=== PATIENT | male | born 1930 | race Caucasian/White ===

== ENCOUNTER → 2021-05-06 | Outpatient (CLI) | payer MEDICARE, BC ==
[2021-05-06 10:40] LABS: HEMOGLOBIN 8.3 gm/dl (14.0-17.5); RED BLOOD COUNT 2.62 M/UL (4.20-5.50)
== END ==
LOC: LAB 09:32
PROVIDERS: Internal Medicine Nephrology
DX: N18.9 Chronic kidney disease, unspecified (principal); D63.1 Anemia in chronic kidney disease
CPT/HCPCS: 36415; 82728; 83540; 83550; 85027

== ENCOUNTER → 2021-05-14 | Outpatient (CLI) | payer MEDICARE, BC ==
[~2021-05-14] VITALS: Ht 170.2 cm; Wt 48.1 kg
[2021-05-14 13:52] LABS: HEMOGLOBIN 8.4 gm/dl (14.0-17.5); RED BLOOD COUNT 2.68 M/UL (4.20-5.50); WHITE BLOOD COUNT 9.2 K/UL (4.5-11.0)
== END ==
LOC: OPSV 12:59
PROVIDERS: Internal Medicine Nephrology
DX: N18.5 Chronic kidney disease, stage 5 (principal); D63.1 Anemia in chronic kidney disease
CPT/HCPCS: 36415; 82728; 83540; 83550; 85027; 96372; Q5105

== ENCOUNTER → 2021-05-28 | Outpatient (CLI) | payer MEDICARE, BC ==
[2021-05-28 14:06] LABS: HEMOGLOBIN 9.7 gm/dl (14.0-17.5); RED BLOOD COUNT 3.03 M/UL (4.20-5.50); WHITE BLOOD COUNT 7.9 K/UL (4.5-11.0)
== END ==
LOC: OPSV 13:00
PROVIDERS: Internal Medicine Nephrology
DX: N18.5 Chronic kidney disease, stage 5 (principal); D63.1 Anemia in chronic kidney disease
CPT/HCPCS: 36415; 85027; 96372; Q5106

== ENCOUNTER → 2021-06-11 | Outpatient (CLI) | payer MEDICARE, BC ==
[~2021-06-11] VITALS: Ht 170.2 cm; Wt 48.1 kg
[2021-06-11 12:31] LABS: HEMOGLOBIN 9.9 gm/dl (14.0-17.5); RED BLOOD COUNT 3.12 M/UL (4.20-5.50); WHITE BLOOD COUNT 8.1 K/UL (4.5-11.0)
== END ==
LOC: OPSV 12:00
PROVIDERS: Internal Medicine Nephrology
DX: N18.5 Chronic kidney disease, stage 5 (principal)
CPT/HCPCS: 36415; 80069; 82728; 83540; 83550; 85027; 96372; Q5105

== ENCOUNTER → 2021-06-29 | Outpatient (CLI) | payer MEDICARE, BC ==
[~2021-06-29] VITALS: Ht 170.2 cm; Wt 48.1 kg
[2021-06-29 14:09] LABS: HEMOGLOBIN 9.8 gm/dl (14.0-17.5); RED BLOOD COUNT 3.2 M/UL (4.20-5.50); WHITE BLOOD COUNT 7.7 K/UL (4.5-11.0)
== END ==
LOC: OPSV 12:00
PROVIDERS: Internal Medicine Nephrology
DX: N25.81 Secondary hyperparathyroidism of renal origin (principal); N18.5 Chronic kidney disease, stage 5; D63.1 Anemia in chronic kidney disease
CPT/HCPCS: 36415; 83970; 85027; 96372; Q5106

== ENCOUNTER → 2021-07-15 | Outpatient (CLI) | payer MEDICARE, BC ==
[2021-07-15 13:13] LABS: RED BLOOD COUNT 3.26 M/UL (4.20-5.50); WHITE BLOOD COUNT 9.3 K/UL (4.5-11.0)
== END ==
LOC: OPSV 12:00
PROVIDERS: Internal Medicine Nephrology
DX: N18.5 Chronic kidney disease, stage 5 (principal); D63.1 Anemia in chronic kidney disease
CPT/HCPCS: 36415; 80069; 82728; 83540; 83550; 85027

== ENCOUNTER → 2021-07-22 | Outpatient (CLI) | payer MEDICARE, BC | LOC: LAB 09:40 | PROVIDERS: Internal Medicine Nephrology | DX: E87.5 Hyperkalemia (principal) | CPT/HCPCS: 36415; 80048 ==

== ENCOUNTER → 2021-08-12 | Outpatient (CLI) | payer MEDICARE, BC ==
[~2021-08-12] MED LIST: CARTIA XT180 MG PO; CATAPRES 0.1MG0.1 MG PO; CLONIDINE HCL0.1 MG PO; FINASTERIDE5 MG PO; LASIX40 MG PO; MULTIVITAMIN1 EACH PO; MUPIROCIN22 GM TOP; PRAVASTATIN SOD20 MG PO; SODIUM BICARBO325 MG PO; TUMS200 MG PO
== END ==
LOC: OPSV 12:00
DX: N18.5 Chronic kidney disease, stage 5 (principal); D63.1 Anemia in chronic kidney disease
CPT/HCPCS: 96372; J0885

== ENCOUNTER → 2021-08-18 | Outpatient (CLI) | payer MEDICARE, BC ==
[2021-08-18 13:12] LABS: HEMOGLOBIN 11.1 gm/dl (14.0-17.5); RED BLOOD COUNT 3.6 M/UL (4.20-5.50); WHITE BLOOD COUNT 8.9 K/UL (4.5-11.0)
== END ==
LOC: OPSV 12:00
PROVIDERS: Internal Medicine Nephrology
DX: N18.5 Chronic kidney disease, stage 5 (principal); D63.1 Anemia in chronic kidney disease
CPT/HCPCS: 36415; 80069; 82728; 83540; 83550; 85027

== ENCOUNTER 2021-08-24 18:47 | Inpatient (IN) | payer MEDICARE, BC ==
[~2021-08-24] VITALS: Ht 170.2 cm; Wt 48.5 kg
[2021-08-24 20:34] LABS: HEMOGLOBIN 10.7 gm/dl (14.0-17.5); RED BLOOD COUNT 3.51 M/UL (4.20-5.50); WHITE BLOOD COUNT 7.7 K/UL (4.5-11.0)
[2021-08-24 20:57] LABS: BUN/CREATININE RATIO 10 (0-10)
--- NOTE | 2021-08-24 21:00 | NUR ---
UNABLE TO OBTAIN A LIST OF PT'S HOME MEDICATIONS FROM PT. PT CANNOT GIVE A LIST OF HOME MEDICATIONS AT THIS TIME. TRIED TO USE MEDICATION CLAIM HISTORY, HOWEVER ONLY 3 MEDICATIONS POPPED UP AND PT COULD NOT VERIFY THOSE WELL.
[2021-08-25 05:59] LABS: HEMOGLOBIN 9.4 gm/dl (14.0-17.5)
[2021-08-25 06:00] LABS: RED BLOOD COUNT 3.12 M/UL (4.20-5.50)
--- NOTE | 2021-08-25 09:48 | NUR ---
pt signed consent for tunneled dialysis catheter placement.
[2021-08-25] MEDS ORDERED: SODIUM BICARBO325 MG PO (10:33)
[2021-08-25] MEDS ORDERED: FINASTERIDE5 MG PO (10:33)
[2021-08-25] MEDS ORDERED: MULTIVITAMIN1 EACH PO (10:34)
[2021-08-25] MEDS ORDERED: TUMS200 MG PO (10:34)
[2021-08-25] MEDS ORDERED: PRAVASTATIN SOD20 MG PO (10:34)
[2021-08-25] MEDS ORDERED: CARTIA XT180 MG PO (10:34)
[2021-08-25] MEDS ORDERED: MUPIROCIN22 GM TOP (10:35)
[2021-08-25] MEDS ORDERED: LASIX40 MG PO (10:35)
[2021-08-25] MEDS ORDERED: CLONIDINE HCL0.1 MG PO (10:35)
[2021-08-26 04:57] LABS: HEMOGLOBIN 9.8 gm/dl (14.0-17.5); RED BLOOD COUNT 3.21 M/UL (4.20-5.50)
[2021-08-26 08:12] LABS: HBSAG SCREEN Negative (Negative); HEP A AB, IGM Negative (Negative); HEP B CORE AB, IGM Negative (Negative); HEP C VIRUS AB 0.1 (0.0-0.9)
--- NOTE | 2021-08-26 08:54 | NUR ---
off unit for dilysis placement.
--- NOTE | 2021-08-26 14:05 | NUR ---
PT RESTING QUIETLY AFTER RETURNING FROM LEFT SUBCLAVIAN DIALYSIS CATHETER DRESSING [facility]I.
[2021-08-27 03:27] LABS: HEMOGLOBIN 9.3 gm/dl (14.0-17.5); RED BLOOD COUNT 3.06 M/UL (4.20-5.50)
[2021-08-27 03:28] LABS: WHITE BLOOD COUNT 16.8 K/UL (4.5-11.0)
[2021-08-28 07:54] LABS: HEMOGLOBIN 9.6 gm/dl (14.0-17.5); RED BLOOD COUNT 3.15 M/UL (4.20-5.50); WHITE BLOOD COUNT 14.9 K/UL (4.5-11.0)
[2021-08-28] MEDS ORDERED: CATAPRES 0.1MG0.1 MG PO (09:38)
== END 2021-08-28 17:47 | disposition home or self-care (01) | DRG 673 ==
LOC: MED SURG 4 18:48
PROVIDERS: Internal Medicine; Internal Medicine Nephrology; Surgery; ADMIT Internal Medicine
PROC: 02HV33Z Insertion of Infusion Device into Superior Vena Cava, Percutaneous Approach (ICD-10-PCS; 2021-08-26)
PROC: 5A1D70Z Performance of Urinary Filtration, Intermittent, Less than 6 Hours Per Day (ICD-10-PCS; 2021-08-26)
PROC: 5A1D70Z Performance of Urinary Filtration, Intermittent, Less than 6 Hours Per Day (ICD-10-PCS; 2021-08-26)
PROC: 5A1D70Z Performance of Urinary Filtration, Intermittent, Less than 6 Hours Per Day (ICD-10-PCS; 2021-08-26)
PROC: 0JH63XZ Insertion of Tunneled Vascular Access Device into Chest Subcutaneous Tissue and Fascia, Percutaneous Approach (ICD-10-PCS; principal; 2021-08-26 08:15)
DX: I12.0 Hypertensive chronic kidney disease with stage 5 chronic kidney disease or end stage renal disease (principal); N18.6 End stage renal disease; E43 Unspecified severe protein-calorie malnutrition; E87.2 Acidosis; Z68.1 Body mass index [BMI] 19.9 or less, adult; N40.0 Benign prostatic hyperplasia without lower urinary tract symptoms; Z20.822 Contact with and (suspected) exposure to COVID-19; M51.36 Other intervertebral disc degeneration, lumbar region; E87.5 Hyperkalemia; E78.5 Hyperlipidemia, unspecified; D63.1 Anemia in chronic kidney disease; D50.9 Iron deficiency anemia, unspecified; Z99.2 Dependence on renal dialysis; Z90.5 Acquired absence of kidney; Z85.528 Personal history of other malignant neoplasm of kidney; Z85.89 Personal history of malignant neoplasm of other organs and systems; Z98.890 Other specified postprocedural states; L89.152 Pressure ulcer of sacral region, stage 2
CPT/HCPCS: 36415; 71045; 77001; 80048; 80053; 80061; 80074; 82550; 82553; 82962; 83036; 83540; 83550; 83605; 83735; 83880; 84100; 84484; 85025; 85027; 85610; 85652; 86140; 87040; 90935; 90937; 93005; A6212; C1750; C1769; J0360; J1100; J1642; J1644; J1756; J2001; J2370; J2405; J2704; J2997; J3010; J7030; J7040; J7120; Q5105; U0002

== ENCOUNTER 2021-09-23 16:26 | Inpatient (IN) | payer MEDICARE, BC ==
[~2021-09-23] VITALS: Ht 170.2 cm; Wt 47.8 kg
[2021-09-23 18:26] LABS: HEMOGLOBIN 10.6 gm/dl (14.0-17.5); RED BLOOD COUNT 3.58 M/UL (4.20-5.50)
[2021-09-23 18:50] LABS: WHITE BLOOD COUNT 42.3 K/UL (4.5-11.0)
[2021-09-24 04:17] LABS: HEMOGLOBIN 9.2 gm/dl (14.0-17.5)
[2021-09-24 04:20] LABS: RED BLOOD COUNT 3.12 M/UL (4.20-5.50); WHITE BLOOD COUNT 42.1 K/UL (4.5-11.0)
--- NOTE | 2021-09-24 04:22 | NUR ---
CRITICAL LACTIC OF 42.1, DR. INTERIANO NOTIFIED. NO NEW ORDERS
[2021-09-24 10:42] LABS: MONONUCLEAR CELLS 4 (75-100); POLYMORPHONUCLEAR % 96 (0-25); RBC (AUTOMATED) 2000 (0-100000); TOTAL PROTEIN, BODY FLUID 4.4 gm/dL; WBC (AUTOMATED) 13340 (0-500)
[2021-09-24 13:12] LABS: LDH, BODY FLUID 988 U/L
[2021-09-25 03:20] LABS: HEMOGLOBIN 8.6 gm/dl (14.0-17.5); RED BLOOD COUNT 2.85 M/UL (4.20-5.50)
[2021-09-25 03:30] LABS: WHITE BLOOD COUNT 32.4 K/UL (4.5-11.0)
[2021-09-26 06:39] LABS: HEMOGLOBIN 9.2 gm/dl (14.0-17.5)
[2021-09-26 06:49] LABS: RED BLOOD COUNT 3.16 M/UL (4.20-5.50); WHITE BLOOD COUNT 38.1 K/UL (4.5-11.0)
[2021-09-26 15:13] LABS: MONONUCLEAR CELLS 23.5 (75-100); POLYMORPHONUCLEAR % 76.5 (0-25); RBC (AUTOMATED) 8400 (0-100000); WBC (AUTOMATED) 19760 (0-500)
[2021-09-26 15:44] LABS: LDH, BODY FLUID 3713 U/L
[2021-09-27 04:48] LABS: HEMOGLOBIN 9.5 gm/dl (14.0-17.5); RED BLOOD COUNT 3.24 M/UL (4.20-5.50)
[2021-09-27 04:53] LABS: WHITE BLOOD COUNT 28.2 K/UL (4.5-11.0)
[2021-09-28 04:20] LABS: HEMOGLOBIN 9.1 gm/dl (14.0-17.5); RED BLOOD COUNT 3.08 M/UL (4.20-5.50); WHITE BLOOD COUNT 27.5 K/UL (4.5-11.0)
--- NOTE | 2021-09-28 13:28 | NUR ---
dr. jasso comes and was informed not to give the medications via chest tube until he sees patient who is getting dialysis at this time. stated he will be back to see him.
--- NOTE | 2021-09-28 18:07 | NUR ---
cathflor and pulmozyne given by dr. lux through chest tube.
[2021-09-29 04:33] LABS: WHITE BLOOD COUNT 23.8 K/UL (4.5-11.0)
[2021-09-29 04:58] LABS: RED BLOOD COUNT 3.41 M/UL (4.20-5.50)
[2021-09-30 04:57] LABS: HEMOGLOBIN 9.9 gm/dl (14.0-17.5); RED BLOOD COUNT 3.37 M/UL (4.20-5.50); WHITE BLOOD COUNT 23.4 K/UL (4.5-11.0)
[2021-09-30] MEDS ORDERED: HYDROCODON-ACE1 EAC4 PO (09:02)
[2021-09-30] MEDS ORDERED: ATIVAN1 MG PO (09:02)
[2021-09-30] MEDS ORDERED: IPRAT-ALBUT 0.5-3 ML INH (09:10)
[2021-09-30] MEDS ORDERED: COLACE100 MG PO (09:10)
[2021-09-30] MEDS ORDERED: AUGMENTIN 500-1 EACH PO (10:18)
== END 2021-09-30 14:30 | DRG 871 ==
LOC: ER1 16:26 → MED SURG 4 21:40 → 3 EAST 21:40 → CDU 21:40 → 3 EAST 09-24 01:45 → MED SURG 4 09-24 18:39
PROVIDERS: Internal Medicine; Internal Medicine Pulmonary Disease; Physician Assistant; ADMIT Internal Medicine
PROC: 3E03329 Introduction of Other Anti-infective into Peripheral Vein, Percutaneous Approach (ICD-10-PCS; 2021-09-23)
PROC: 0W993ZZ Drainage of Right Pleural Cavity, Percutaneous Approach (ICD-10-PCS; principal; 2021-09-24)
PROC: 5A1D70Z Performance of Urinary Filtration, Intermittent, Less than 6 Hours Per Day (ICD-10-PCS; 2021-09-25)
PROC: 0W9930Z Drainage of Right Pleural Cavity with Drainage Device, Percutaneous Approach (ICD-10-PCS; 2021-09-26)
PROC: 5A1D70Z Performance of Urinary Filtration, Intermittent, Less than 6 Hours Per Day (ICD-10-PCS; 2021-09-28)
PROC: 0JPT0XZ Removal of Tunneled Vascular Access Device from Trunk Subcutaneous Tissue and Fascia, Open Approach (ICD-10-PCS; 2021-09-30)
PROC: 05PYX3Z Removal of Infusion Device from Upper Vein, External Approach (ICD-10-PCS; 2021-09-30)
DX: A41.9 Sepsis, unspecified organism (principal); J18.9 Pneumonia, unspecified organism; N18.6 End stage renal disease; J96.01 Acute respiratory failure with hypoxia; J86.9 Pyothorax without fistula; I12.0 Hypertensive chronic kidney disease with stage 5 chronic kidney disease or end stage renal disease; E44.0 Moderate protein-calorie malnutrition; J90 Pleural effusion, not elsewhere classified; G93.40 Encephalopathy, unspecified; Z20.822 Contact with and (suspected) exposure to COVID-19; Z66 Do not resuscitate; J43.9 Emphysema, unspecified; D72.823 Leukemoid reaction; M51.36 Other intervertebral disc degeneration, lumbar region; G47.00 Insomnia, unspecified; D64.9 Anemia, unspecified; N40.0 Benign prostatic hyperplasia without lower urinary tract symptoms; R65.20 Severe sepsis without septic shock; E87.5 Hyperkalemia; Z99.2 Dependence on renal dialysis; Z85.528 Personal history of other malignant neoplasm of kidney; Z90.89 Acquired absence of other organs; Z85.89 Personal history of malignant neoplasm of other organs and systems; Z98.890 Other specified postprocedural states; Z99.81 Dependence on supplemental oxygen; Z51.5 Encounter for palliative care; Z79.899 Other long term (current) drug therapy; Z85.828 Personal history of other malignant neoplasm of skin
CPT/HCPCS: 36415; 36600; 71045; 71046; 80048; 80053; 80202; 81001; 82150; 82800; 82803; 82945; 83036; 83605; 83615; 83735; 83986; 84132; 84157; 85025; 87040; 87070; 87086; 87205; 89051; 90937; 93005; 94664; 94760; 96374; 96375; 97161; 97165; 99285; A6212; C1729; G0378; J1644; J2543; J2997; J3370; J7030; J7040; J7050; J7070; U0002